=== PATIENT | male | born 1955 | race Caucasian/White ===

== ENCOUNTER 2017-09-10 10:25 | Inpatient (IN) | payer BC, SELFPAY ==
[~2017-09-10] VITALS: Ht 175.3 cm; Wt 84.0 kg
[2017-09-10 11:33] LABS: BASOPHILS % (AUTO) 0.1 % (0-1); EOSINOPHILS # (AUTO) 0.1 X10'3 (0-0.9); HEMATOCRIT 41.5 % (42.0-52.0); HEMOGLOBIN 14.7 g/dl (14.0-17.9); LYMPHOCYTES # (AUTO) 0.7 X10'3 (1.1-4.8); MEAN CORPUSCULAR HEMOGLOBIN 31.8 PG (27.0-31.0); MEAN CORPUSCULAR HGB CONC 35.4 % (33.0-36.5); MEAN CORPUSCULAR VOLUME 89.9 FL (78-98); MEAN PLATELET VOLUME 6.9 FL (7.4-10.4); MONOCYTES # (AUTO) 0.7 X10'3 (0-0.9); MONOCYTES % (AUTO) 4.6 % (2-12); NEUTROPHILS # (AUTO) 12.8 X10'3 (1.8-7.7); NEUTROPHILS % (AUTO) 89.3 % (42-75); PLATELET COUNT 173 X10'3 (140-440); RED BLOOD COUNT 4.61 X10'6 (4.70-6.10); RED CELL DISTRIBUTION WIDTH 12.2 % (11.5-14.5); WHITE BLOOD COUNT 14.3 X10'3 (4.5-11.0)
[2017-09-10 11:41] LABS: INR 1.2 INR; PROTHROMBIN TIME 12.7 SECONDS (9.0-12.0)
[2017-09-10 11:47] LABS: ALANINE AMINOTRANSFERASE 28 U/L (12-78); ALBUMIN 3.2 G/DL (3.4-5.0); ALBUMIN/GLOBULIN RATIO 0.8 (1.1-1.5); ALKALINE PHOSPHATASE 50 IU/L (46-116); ANION GAP 10 (8-16); ASPARTATE AMINO TRANSFERASE 20 U/L (10-37); BILIRUBIN,TOTAL 1.4 MG/DL (0.1-1.0); BLOOD UREA NITROGEN 20 MG/DL (7-18); BUN/CREATININE RATIO 12.1 (5.4-32.0); CALCIUM 9.7 MG/DL (8.5-10.1); CHLORIDE 99 MMOL/L (99-107); CREATININE 1.65 MG/DL (0.60-1.10); GLUCOSE 120 MG/DL (70-104); PLATELET ESTIMATE NORMAL; SODIUM 135 MMOL/L (135-145); TOTAL CARBON DIOXIDE 26.4 MMOL/L (24-32); TOTAL CELLS COUNTED 100; TOTAL PROTEIN 7.3 G/DL (6.4-8.2); eGFR 42 ML/MIN
[2017-09-10 11:59] LABS: CLARITY,URINE CLOUDY (Clear); COLOR,URINE YELLOW (Yellow); GLUCOSE, URINE NEGATIVE (Neg); KETONES,URINE NEGATIVE (Neg); LEUKOCYTE ESTERASE ,URINE LARGE (Neg); NITRITES, URINE NEGATIVE (Neg); OCCULT BLOOD,URINE MODERATE (Neg); PH,URINE 5.5 (4.8-8.0); PROTEIN,URINE TRACE mg/dl (Neg); UROBILINOGEN,URINE 0.2 E.U/dL (0.2-1.0)
[2017-09-10 12:04] LABS: UA COLLECTION TYPE CLN CATCH MIDSTREAM
[2017-09-10 12:07] LABS: BACTERIA,URINE FEW /HPF (Neg); MUCUS STRANDS FEW /LPF (Neg); RENAL CELLS, URINE FEW /HPF; SQUAMOUS EPITHELIAL CELL,UR FEW /LPF (FEW); TRANSITIONAL EPI CELLS,URINE FEW /HPF; WBC,URINE 50-100 /HPF (0-4)
[2017-09-10] MEDS ORDERED: CefTRIAXone 2gm/D5W 50ml 50 ML IV ONE (12:15)
[2017-09-10] MEDS ORDERED: normal saline 1000ML IV soln IVB ONE ×2 (12:55)
[2017-09-10] MEDS ORDERED: mag hydrox/Alum hydrox/simeth 30ml oral suspension PO PRN (16:00)
[2017-09-10] MEDS ORDERED: ondansetron/PF 4mg/2ml inj IV PRN (16:00)
[2017-09-10] MEDS ORDERED: magnesium hydroxide 30ml (MOM) UD suspension PO PRN (16:00)
[2017-09-10] MEDS ORDERED: acetaminophen 325mg tablet PO PRN (16:00)
[2017-09-10] MEDS: normal saline 1000ml 1,000 ML IV SCH ×2 (16:40→22:56)
[2017-09-10] MEDS ORDERED: LORazepam 2 mg/ml vial IV PRN (18:00)
[2017-09-10] MEDS ORDERED: ibuprofen tablet 400 MG TABLET PO ONE (18:05)
[2017-09-10] MEDS: heparin, porcine 5000 units/ml vial SQ SCH (20:15)
[2017-09-10] MEDS ORDERED: normal saline 1000ml 1,000 ML IV ONE (20:30)
[2017-09-10] MEDS ORDERED: DOPamine 400mg/D5W 250ml 250 ML IV SCH (22:15)
[2017-09-11] VITALS (8 sets, daily range): BP systolic 101–127; BP diastolic 61–80
[2017-09-11] MEDS: normal saline 1000ml 1,000 ML IV SCH ×4 (05:19→20:22)
[2017-09-11 07:04] LABS: ALBUMIN 2.5 G/DL (3.4-5.0); ANION GAP 10 (8-16); BLOOD UREA NITROGEN 11 MG/DL (7-18); BUN/CREATININE RATIO 11.5 (5.4-32.0); CALCIUM 8.6 MG/DL (8.5-10.1); CHLORIDE 108 MMOL/L (99-107); CREATININE 0.96 MG/DL (0.60-1.10); GLUCOSE 117 MG/DL (70-104); SODIUM 140 MMOL/L (135-145); TOTAL CARBON DIOXIDE 22.4 MMOL/L (24-32); eGFR 79 ML/MIN
[2017-09-11 07:35] LABS: BASOPHILS % (AUTO) 0.1 % (0-1); EOSINOPHILS # (AUTO) 0.4 X10'3 (0-0.9); HEMATOCRIT 35.5 % (42.0-52.0); HEMOGLOBIN 12.4 g/dl (14.0-17.9); LYMPHOCYTES # (AUTO) 0.5 X10'3 (1.1-4.8); MEAN CORPUSCULAR HEMOGLOBIN 31.6 PG (27.0-31.0); MEAN CORPUSCULAR HGB CONC 34.9 % (33.0-36.5); MEAN CORPUSCULAR VOLUME 90.4 FL (78-98); MEAN PLATELET VOLUME 7.3 FL (7.4-10.4); MONOCYTES # (AUTO) 0.5 X10'3 (0-0.9); MONOCYTES % (AUTO) 4.8 % (2-12); NEUTROPHILS # (AUTO) 8.2 X10'3 (1.8-7.7); NEUTROPHILS % (AUTO) 86.1 % (42-75); PLATELET COUNT 136 X10'3 (140-440); RED BLOOD COUNT 3.93 X10'6 (4.70-6.10); RED CELL DISTRIBUTION WIDTH 12.4 % (11.5-14.5); WHITE BLOOD COUNT 9.5 X10'3 (4.5-11.0)
[2017-09-11] MEDS ORDERED: thiamine inj. 100 MG, MVI, adult No.4 with vit. K 10 ML in dextrose 5% water 500ml 489 ML IV SCH ×3 (08:00)
[2017-09-11] MEDS: CefTRIAXone 2gm/D5W 50ml 50 ML IV SCH (08:52)
[2017-09-11] MEDS: multivitamins, therapeutics tablet PO SCH (10:20)
[2017-09-11] MEDS: thiamine 100mg tablet PO SCH (10:20)
[2017-09-11] MEDS: heparin, porcine 5000 units/ml vial SQ SCH ×2 (10:20→20:16)
[2017-09-11] MEDS ORDERED: haloperidol lactate 5mg/ml inj IM PRN (11:20)
[2017-09-11] MEDS ORDERED: haloperidol 5mg tablet PO PRN (11:20)
[2017-09-11] MEDS ORDERED: LORazepam 2 mg/ml vial IV PRN (11:20)
[2017-09-11] MEDS ORDERED: LOSA50TA3 PO (12:49)
[2017-09-11] MEDS ORDERED: FENO134C PO (12:49)
[2017-09-11] MEDS ORDERED: SIMV20TA PO (12:49)
[2017-09-11] MEDS: lactobacillus rhamnosus 10,000 MMU CELLS/CAPSULE PO SCH (20:16)
[2017-09-12] MEDS: normal saline 1000ml 1,000 ML IV SCH ×3 (02:49→19:54)
[2017-09-12 03:00] VITALS: BP 140/71
[2017-09-12 05:31] LABS: BASOPHILS % (AUTO) 0.3 % (0-1); EOSINOPHILS # (AUTO) 0.3 X10'3 (0-0.9); EOSINOPHILS % (AUTO) 4.9 % (0-6); HEMATOCRIT 34.7 % (42.0-52.0); HEMOGLOBIN 12.4 g/dl (14.0-17.9); LYMPHOCYTES # (AUTO) 0.8 X10'3 (1.1-4.8); LYMPHOCYTES % (AUTO) 11.7 % (21-51); MEAN CORPUSCULAR HEMOGLOBIN 31.6 PG (27.0-31.0); MEAN CORPUSCULAR HGB CONC 35.6 % (33.0-36.5); MEAN CORPUSCULAR VOLUME 88.8 FL (78-98); MEAN PLATELET VOLUME 7.9 FL (7.4-10.4); MONOCYTES # (AUTO) 0.5 X10'3 (0-0.9); MONOCYTES % (AUTO) 6.9 % (2-12); NEUTROPHILS # (AUTO) 5.4 X10'3 (1.8-7.7); NEUTROPHILS % (AUTO) 76.2 % (42-75); PLATELET COUNT 138 X10'3 (140-440); RED BLOOD COUNT 3.91 X10'6 (4.70-6.10); RED CELL DISTRIBUTION WIDTH 12.6 % (11.5-14.5); WHITE BLOOD COUNT 7.1 X10'3 (4.5-11.0)
[2017-09-12 05:44] LABS: ALBUMIN 2.5 G/DL (3.4-5.0); ANION GAP 10 (8-16); BLOOD UREA NITROGEN 8 MG/DL (7-18); BUN/CREATININE RATIO 8.9 (5.4-32.0); CALCIUM 8.7 MG/DL (8.5-10.1); CHLORIDE 106 MMOL/L (99-107); GLUCOSE 89 MG/DL (70-104); POTASSIUM 3.7 MMOL/L (3.5-5.1); SODIUM 138 MMOL/L (135-145); TOTAL CARBON DIOXIDE 22.1 MMOL/L (24-32); eGFR 85 ML/MIN
[2017-09-12 06:30] VITALS: BP 120/72
[2017-09-12] MEDS: CefTRIAXone 2gm/D5W 50ml 50 ML IV SCH (09:09)
[2017-09-12] MEDS: thiamine 100mg tablet PO SCH (09:11)
[2017-09-12] MEDS: lactobacillus rhamnosus 10,000 MMU CELLS/CAPSULE PO SCH ×2 (09:11→19:53)
[2017-09-12] MEDS: multivitamins, therapeutics tablet PO SCH (09:11)
[2017-09-12] MEDS: heparin, porcine 5000 units/ml vial SQ SCH ×2 (09:12→19:54)
[2017-09-12 13:54] VITALS: BP 120/73
[2017-09-12 16:19] VITALS: BP 163/82
[2017-09-12 19:00] VITALS: BP 140/71
[2017-09-12 23:00] VITALS: BP 125/80
[2017-09-13] MEDS: normal saline 1000ml 1,000 ML IV SCH (01:22)
[2017-09-13 03:00] VITALS: BP 142/81
[2017-09-13 06:00] VITALS: BP 132/81
[2017-09-13 06:09] LABS: BASOPHILS % (AUTO) 0.1 % (0-1); EOSINOPHILS # (AUTO) 0.4 X10'3 (0-0.9); EOSINOPHILS % (AUTO) 5.1 % (0-6); HEMATOCRIT 34.3 % (42.0-52.0); HEMOGLOBIN 12.3 g/dl (14.0-17.9); LYMPHOCYTES # (AUTO) 0.9 X10'3 (1.1-4.8); LYMPHOCYTES % (AUTO) 12.9 % (21-51); MEAN CORPUSCULAR HEMOGLOBIN 31.8 PG (27.0-31.0); MEAN CORPUSCULAR HGB CONC 35.8 % (33.0-36.5); MEAN CORPUSCULAR VOLUME 88.9 FL (78-98); MEAN PLATELET VOLUME 7.4 FL (7.4-10.4); MONOCYTES # (AUTO) 0.9 X10'3 (0-0.9); MONOCYTES % (AUTO) 13.3 % (2-12); NEUTROPHILS # (AUTO) 4.8 X10'3 (1.8-7.7); NEUTROPHILS % (AUTO) 68.6 % (42-75); PLATELET COUNT 158 X10'3 (140-440); RED BLOOD COUNT 3.85 X10'6 (4.70-6.10); RED CELL DISTRIBUTION WIDTH 12.6 % (11.5-14.5); WHITE BLOOD COUNT 6.9 X10'3 (4.5-11.0)
[2017-09-13 06:15] LABS: ALBUMIN 2.5 G/DL (3.4-5.0); ANION GAP 9 (8-16); BLOOD UREA NITROGEN 7 MG/DL (7-18); BUN/CREATININE RATIO 7.8 (5.4-32.0); CALCIUM 8.7 MG/DL (8.5-10.1); CHLORIDE 106 MMOL/L (99-107); GLUCOSE 92 MG/DL (70-104); POTASSIUM 3.4 MMOL/L (3.5-5.1); SODIUM 140 MMOL/L (135-145); TOTAL CARBON DIOXIDE 25.2 MMOL/L (24-32); eGFR 85 ML/MIN
[2017-09-13] MEDS ORDERED: LACT1CAP26 PO (07:28)
[2017-09-13] MEDS ORDERED: CEPH-572 PO (07:28)
[2017-09-13] MEDS ORDERED: potassium Cl 20 mEq SR tablet PO ONE (07:35)
[2017-09-13] MEDS: heparin, porcine 5000 units/ml vial SQ SCH (08:00)
[2017-09-13] MEDS: CefTRIAXone 2gm/D5W 50ml 50 ML IV SCH (08:23)
[2017-09-13] MEDS: lactobacillus rhamnosus 10,000 MMU CELLS/CAPSULE PO SCH (08:27)
[2017-09-13] MEDS: multivitamins, therapeutics tablet PO SCH (08:27)
[2017-09-13] MEDS: thiamine 100mg tablet PO SCH (08:27)
[2017-09-13] MEDS ORDERED: LORazepam 1 MG tablet PO PRN (11:20)
[2017-09-13] MEDS ORDERED: LORazepam 2 mg/ml vial IV PRN (11:20)
[2017-09-15] MEDS ORDERED: LORazepam 2 mg/ml vial IV PRN (11:20)
[2017-09-15] MEDS ORDERED: LORazepam 1 MG tablet PO PRN (11:20)
== END 2017-09-13 09:30 | disposition home or self-care (01) | DRG 871 ==
LOC: ER 10:26 → ED HOLD 15:58 → PCU 3S 09-11 10:46
PROVIDERS: ADMIT Family Medicine; ATTEND Family Medicine
DX: A41.9 Sepsis, unspecified organism (principal); R65.21 Severe sepsis with septic shock; N17.9 Acute kidney failure, unspecified; N39.0 Urinary tract infection, site not specified; E78.5 Hyperlipidemia, unspecified; F10.10 Alcohol abuse, uncomplicated; E78.00 Pure hypercholesterolemia, unspecified; I10 Essential (primary) hypertension; N40.0 Benign prostatic hyperplasia without lower urinary tract symptoms; Z72.0 Tobacco use; Z79.899 Other long term (current) drug therapy
CPT/HCPCS: 36415; 76775; 80048; 80053; 81001; 83605; 84145; 85025; 85610; 87040; 87070; 87088; 99285; A4620; J0696; J1265; J1644; J3411; J7030; J7060

== ENCOUNTER 2021-10-12 07:38 | Outpatient (CLI) | payer SELFPAY ==
[~2021-10-12 07:38] MED LIST: FENO134C21 PO; LACT1CAP26 PO; LOSA50TA3 PO; SIMV20TA PO
== END 2021-10-12 23:59 | disposition home or self-care (01) ==
LOC: VAS 07:38
DX: Z13.6 Encounter for screening for cardiovascular disorders (principal)